=== PATIENT | male | born 1990 | race Two or more races ===

== ENCOUNTER 2017-04-30 12:30 | Emergency (ER) | payer OTHER ==
[2017-04-30 12:35] VITALS: BP 133/74; PULSE 74; TEMP 98.2; BMI 19.0
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
--- NOTE | 2017-04-30 14:23 | PDOC ---
Attending Attestation - Resident Resident Name: KedarKamryn - ED Attending Attestation I have performed the following: I have examined & evaluated the patient, The case was reviewed & discussed with the resident, I agree w/resident's findings & plan, Exceptions are as noted - Medical Decision Making 04/30/17 14:19 Vital Signs Temp Pulse Resp BP Pulse Ox 98.2 F 74 18 133/74 100 04/30/17 12:31 04/30/17 12:31 04/30/17 12:31 04/30/17 12:31 04/30/17 12:31 26 year old M c/ hx of chlamydia infecn p/w healed penile lesion approx 2 wks ago. Pt had sex with a new partner. Used condoms for vaginal intercourse but no protection for oral sex. Developed vesicular lesions that was painful but no dysuria or discharge. Pt requesting HIV test. Pt physical exam c/w healed HSV lesion. No indication for antiviral given no active lesion at this time. Will send HIV, RPR, HSV, GC/CT, and have the patient call back for the results. <Andrew Jacobs - Last Filed: 04/30/17 14:18> - HPI HPI: 04/30/17 14:26 The patient is a 26 year old male, with significant past medical history of Chlamydia who presents to the emergency department with lower abdominal pain and dysuria. Patient reports sexual intercourse with new partner (protected with vaginal sex, unprotected for oral sex). Patient is requesting STD testing. Patient denies fevers or chills. Patient denies frequency, urgency or hematuria. - Physicial Exam PE: 04/30/17 14:26 GENERAL: Awake, alert, and fully oriented, in no acute distress HEAD: No signs of trauma EYES: PERRLA, EOMI, sclera anicteric, conjunctiva clear ENT: Auricles normal inspection, hearing grossly normal, nares patent, oropharynx clear without exudates. Moist mucosa NECK: Normal ROM, supple, no lymphadenopathy, JVD, or masses LUNGS: Breath sounds equal, clear to auscultation bilaterally. No wheezes, and no crackles HEART: Regular rate and rhythm, normal S1 and S2, no murmurs, rubs or gallops ABDOMEN: Soft, nontender, normoactive bowel sounds. No guarding, no rebound. No masses EXTREMITIES: Normal range of motion, no edema. No clubbing or cyanosis. No cords, erythema, or tenderness NEUROLOGICAL: Cranial nerves II through XII grossly intact. Normal speech, normal gait SKIN: Warm, Dry, normal turgor, no rashes or lesions noted. : +Healed vesicular lesion on dorsum of penis. No drainage. Uncircumcised penis. No testicular tenderness. - Medical Decision Making 04/30/17 14:26 Documentation prepared by Eve Cosme, acting as medical secretary receptionist for Andrew Jacobs MD <Eve Cosme - Last Filed: 04/30/17 14:27>
[2017-04-30 15:02] LABS: HIV 1 & 2 AB NEGATIVE; HIV 1 AGp24 NEGATIVE
[2017-04-30 15:23] LABS: URINE APPEARANCE CLEAR; URINE BILIRUBIN NEGATIVE (NEGATIVE); URINE BLOOD NEGATIVE (NEGATIVE); URINE COLOR LTYELLOW; URINE GLUCOSE (UA) NEGATIVE (NEGATIVE); URINE KETONE NEGATIVE (NEGATIVE); URINE LEUK ESTERASE NEGATIVE (NEGATIVE); URINE NITRITE NEGATIVE (NEGATIVE); URINE PROTEIN NEGATIVE (NEGATIVE); URINE UROBILINOGEN NEGATIVE mg/dL (0.2-1.0)
[2017-05-02 00:06] LABS: HSV 2 DNA. Negative (Negative)
== END 2017-04-30 14:28 | disposition home or self-care (01) ==
LOC: JER 12:30
DX: A60.01 Herpesviral infection of penis (principal); Z87.438 Personal history of other diseases of male genital organs
CPT/HCPCS: 36415; 81003; 86593; 86790; 87086; 87389; 87529; 99283-25